=== PATIENT | male | born 1955 | race Caucasian/White ===

== ENCOUNTER 2018-12-23 12:15 | Emergency (ER) | payer MEDICARE, SELFPAY ==
[2018-12-23 12:17] VITALS: BP 141/87; PULSE 102; RESP 18; TEMP 36.2; O2SAT 97; BMI 27.3
[2018-12-23] MEDS: morphine 10 MG/ML Syringe IM (12:54)
[2018-12-23] MEDS: Triamcinolone Acetonide 40 MG/ML Vial 80 MG IM (12:54)
[2018-12-23] MEDS: Ondansetron ODT 4 MG Tablet PO (12:54)
[2018-12-23] MEDS: diazePAM 5 MG Tablet PO (12:54)
--- NOTE | 2018-12-23 13:43 | ED.DCSUM_ITS ---
- ER Visit Summary Date of Service: 12/23/18 Chief Complaint: Fall History of Present Illness: The patient is a [address] Govea. He reports that 3 days ago he was cleaning his boat and was sitting on a seat. He fell off his feet onto his left hip and back. He reports it was approximately 1 foot drop. He denies any blood in the head or loss of consciousness. He complains of a sharp lower back pain is 10 on 10 severity. He states it is worsened by him when the muscle spasm. Is taken a leave without relief. He has paresthesias that radiate around the anterior surface of his left thigh. He denies any weakness. No problems with his bowels or his bladder. No groin numbness. Patient went to urgent care yesterday and had x-rays that were negative. He denies any other complaints. Physical Examination: Vitals: Stable. Afebrile. General: A&O x 3. NAD. Cardiovascular exam: Regular rate and rhythm, no murmur, rub or gallop. Respiratory exam: Clear to auscultation bilaterally. No wheezes or stridor. Abdominal exam: Soft, nontender, nondistended, normal bowel sounds. No peritoneal signs. Back: No tenderness to palpation over the vertebrae or the flank. No point tenderness. Negative straight leg bilaterally. 5/5 DF, PF, EHL bilaterally. Decreased sensation to the lateral thigh on the left in an L4 distribution Extremity: No clubbing, cyanosis, or edema. Test Results: I did get the radiologist reads of the LS spine and pelvis x-rays from yesterday. Pelvis was negative. LS spine x-rays show 4 mm of anterior slippage of L3 on L4. No evidence of spondylolysis. Suspect that this is chronic. Moderate degree of disc disease disease at L3/L4. Emergency Department Course and Treatment: Patient was treated with morphine and Kenalog IM. He was given Valium p.o. He had significant relief from this. Treatment Plan: I had a prolonged discussion with patient that with his pain not being reproduced with palpation and the paresthesias in an L4 distribution on the left I suspect that he has a herniated disc in his back. He will be discharged with Percocet and Valium. Instructed to follow-up his primary care physician in 3 to 5 days if not improving. The signs and symptoms of cauda equina syndrome were discussed and he is instructed to return for these. Disposition: To home in improved and stable condition. Impression: 1. Low back pain, acute. This note was generated with [employer] dictation software. It may contain incorrect words, spelling, and punctuation that were not noted in review of the chart prior to signing ED Disposition - Plan for ED Patient: Disposition: Home or Assisted Living Instructions: BACK PAIN (Acute or Chronic) Prescriptions: Oxycodone HCl/Acetaminophen [Percocet 5/325] 1 tab PO Q6H PRN PRN 5 Days #20 tab PRN Reason: Pain Prescription Printed Diazepam [Valium] 5 mg PO Q8 PRN #20 tab PRN Reason: Muscle Spasm Prescription Printed Referrals: Abdirahman Govea MD [Primary Care Provider] - 3-5 Days if not improving
[2018-12-23 13:50] VITALS: BP 129/100; PULSE 98; RESP 15; O2SAT 100
--- NOTE | 2018-12-23 13:50 | ED.RN ---
PT GIVEN WRITTEN AND VERBAL DISCHARGE INSTRUCTIONS AND HOME GOING PRESCRIPTIONS. PT EDUCATED NOT TO DRIVE WHEN TAKING THESE MEDICATIONS. PT REPORTS UNDERSTANDING AND DENIES ANY FURTHER QUESTIONS. PT REPORTS SON IS TAKING HIM HOME AND THAT HE IS IN THE WAITING ROOM. PT AMBULATES OUT OF DEPT, NO ASSISTANCE FROM STAFF NEEDED.
== END 2018-12-23 13:52 | disposition home or self-care (01) ==
LOC: ED 13:06
PROVIDERS: Emergency Provider Emergency Medicine; Family Provider Family Medicine; PCP Family Medicine
DX: M54.5 Low back pain (principal); M62.830 Muscle spasm of back; W17.89XA Other fall from one level to another, initial encounter; Y93.9 Activity, unspecified; Y92.9 Unspecified place or not applicable; Y99.9 Unspecified external cause status; Z79.52 Long term (current) use of systemic steroids; Z79.899 Other long term (current) drug therapy; Z87.19 Personal history of other diseases of the digestive system; Z90.49 Acquired absence of other specified parts of digestive tract
CPT/HCPCS: 96372; 99283

== ENCOUNTER 2018-12-26 04:02 | Emergency (ER) | payer MEDICARE, SELFPAY ==
[2018-12-26 04:03] VITALS: BP 186/113; PULSE 72; RESP 16; TEMP 36.2; O2SAT 98; BMI 26.9
--- NOTE | 2018-12-26 04:12 | ED.VIS.GEN ---
History of Present Illness Chief Complaint: Constipation Informant: Patient Narrative: She stated he is been constipated for the last 3 days. He was seen for back pain and given morphine and prescribed narcotics and benzos. He has not had a bowel movement since. He has abdominal bloating. Over the last couple hours she has not been able to urinate. He thinks is from the constipation. He is never had this before. Current severity is moderate. He has been passing gas. He try to sit on toilet for 2 hours with no relief. He is not sure if it that his anus or rectum yet. No stool softeners. Past Medical History - Allergies and Home Meds Allergies/Adverse Reactions: Allergies No Known Allergies Allergy (Verified 12/26/18 04:02) Primary Care Physician: Abdirahman Govea MD [Primary Care Provider] - Prior records reviewed: Yes Past Medical History: - - Reviewed Surgical History: - - Reviewed Smoking Status: Never smoker Alcohol: None Drugs: None Review of Systems General: Denies: Chills, Fever, Sweats Eyes: Denies: Visual changes - bilaterally, Diplopia ENT: Denies: Rhinorrhea, Sore throat Cardiovascular: Denies: Chest pain, Palpitations Respiratory: Denies: Dyspnea, Cough, Dyspnea on exertion Gastrointestinal: Reports: Abdominal pain, Constipation. Denies: Nausea, Vomiting, Diarrhea, Melena, Hematochezia Genitourinary: Reports: - - HPI. Denies: Dysuria, Hematuria, Frequency Musculoskeletal: Denies: Back pain, Extremity Pain Skin: Denies: Rash, Wounds Neurological: Denies: Headache, Weakness, Numbness Physical Exam Vital Signs/Narrative: Vital Signs Temp Pulse Resp BP Pulse Ox 12/26/18 04:03 97.2 F L 72 16 186/113 H 98 General: Well nourished, Well developed, No Acute Distress Head: Normocephalic, Atraumatic Eyes: Perrl, EOMI ENT: Moist mucous membranes, No rhinorrhea Neck: Supple, Nontender Cardiovascular: Regular rate, Regular rhythm, No murmurs Respiratory: No distress, CTA bilaterally, Chest nontender Abdomen: Soft, Normal bowel sounds, Tender - Tender in the lower abdomen diffusely. Negative for: Nontender, Nondistended, Guarding, Rebound tenderness Back: Nontender, Normal Inspection Extremities: Nontender, No edema Skin: Normal color, No rash Neurological: Alert, Oriented x3, Cranial nerves II-XII grossly intact, Normal Strength, Normal Sensation Psychological: Normal affect, Normal Mood Diagnostic/Tx/Re-eval - Medical Decision Making Given a soapsuds enema she had good relief after this and feels much better. Large BM noted. Patient will be discharged to start MiraLAX and Colace to soften his stool. ED Disposition - Plan for ED Patient: Disposition: Home or Assisted Living Diagnosis: Constipation Instructions: CONSTIPATION (Adult) Referrals: Abdirahman Govea MD [Primary Care Provider] -
== END 2018-12-26 05:45 | disposition home or self-care (01) ==
PROVIDERS: Emergency Provider Emergency Medicine; Family Provider Family Medicine; PCP Family Medicine
DX: K59.00 Constipation, unspecified (principal); Z79.52 Long term (current) use of systemic steroids; Z79.899 Other long term (current) drug therapy
CPT/HCPCS: 99284

== ENCOUNTER 2019-08-12 17:42 | Emergency (ER) | payer MEDICARE, SELFPAY ==
[2019-08-12 17:44] VITALS: BP 159/93; PULSE 78; RESP 18; TEMP 37.3; O2SAT 99; BMI 28.0
[2019-08-12] MEDS: morphine 10 MG/ML Syringe 4 MG SC (18:00)
[2019-08-12] MEDS: Orphenadrine 60 MG/2 ML Ampul IM (18:01)
[2019-08-12] MEDS: Morphine 4 MG/ML Syringe SC (19:18)
[2019-08-12] MEDS: Ketorolac 60 MG/2 ML Vial IM (19:20)
[2019-08-12 19:22] VITALS: BP 168/91; PULSE 75; RESP 15; O2SAT 98
[2019-08-12 20:07] VITALS: BP 148/75; PULSE 74; RESP 15; O2SAT 96
--- NOTE | 2019-08-12 20:24 | ED.DCSUM_ITS ---
- ER Visit Summary Date of Service: 08/12/19 Chief Complaint: Back pain History of Present Illness: The patient is a 63 M with back pain that started this morning when he woke up. Nothing seemed to bring it on. Worse with use. Nothing seems to make it better. The pain is in his lower back. He denies as sociated symptoms like GI or symptoms. Denies weakness or numbness. Denies any history of back surgery or instrumentation. Denies blood thinners. Denies fevers or systemic symptoms. Denies immune compromise, IV drug abuse. He had x-rays of his lower back in December. Physical Examination: Afebrile and vital signs unremarkable. Patient appears uncomfortable but not toxic or in distress. Abdomen is soft and nontender. Lower back pain. Straight leg raise negative. Normal strength and sensation in all groups. Neurovascular intact. Test Results: None indicated Emergency Department Course and Treatment: Patient symptoms sound like myofascial back pain. He had this in the past. There is no indication for imaging or other diagnostic testing. He was treated with morphine and Norflex. On reevaluation, he was having continued spasms. No new or worsening symptoms or findings. He was treated with additional morphine and Toradol. On further reevaluation, he is feeling much better. Patient will be discharged for outpatient therapy with pain medicine and muscle relaxers. Return for new or worsening issues. Follow-up with primary care. Treatment Plan: As above Disposition: Discharge Impression: Lumbar back pain This note was generated with [employer] dictation software. It may contain incorrect words, spelling, and punctuation that were not noted in review of the chart prior to signing ED Disposition - Plan for ED Patient: Referrals: Abdirahman Govea MD [Primary Care Provider] -
--- NOTE | 2019-08-12 20:27 | ED.DEP ---
ED Disposition - Plan for ED Patient: Instructions: ED LUMBAR SPRAIN/STRAIN Prescriptions: cycloBENZAPRine HCl [Flexeril] 10 mg PO TID PRN #20 tab PRN Reason: Muscle Spasm Prescription Printed Oxycodone HCl/Acetaminophen [Percocet 5/325] 1 tab PO Q6H PRN PRN 3 Days #12 tab PRN Reason: Pain Prescription Printed Referrals: Abdirahman Govea MD [Primary Care Provider] -
[2019-08-12 20:51] VITALS: BP 146/73; PULSE 67; RESP 18; O2SAT 96
== END 2019-08-12 20:51 | disposition home or self-care (01) ==
PROVIDERS: Emergency Provider Emergency Medicine; PCP Family Medicine
DX: M54.5 Low back pain (principal)
CPT/HCPCS: 96372; 99284

== ENCOUNTER 2019-09-13 10:09 | Inpatient (IN) | payer MEDICARE, SELFPAY ==
[2019-09-13] VITALS (12 sets, daily range): BP systolic 134–146; BP diastolic 84–123; PULSE 68–92; RESP 16–21; TEMP 36.3–37.1; O2SAT 94–99; BMI 26.9; BMI 26.3
--- NOTE | 2019-09-13 10:32 | EKG12_ITS ---
Test Reason : COUGH Blood Pressure : / mmHG Vent. Rate : 074 BPM Atrial Rate : 074 BPM P-R Int : 138 ms QRS Dur : 082 ms QT Int : 412 ms P-R-T Axes : 022 -13 030 degrees QTc Int : 457 ms Normal sinus rhythm Low voltage QRS Inferior infarct , age undetermined Abnormal ECG Confirmed by ANJEL FELICIANO, HANNAH ([id number]), market editor ИВАН HEWITT ([id number]) on 09/17/2019 2:57:24 PM Referred By: LILI Confirmed By:HANNAH HOBBS MD
--- NOTE | 2019-09-13 10:37 | ED.DCSUM_ITS ---
- ER Visit Summary Date of Service: 09/13/19 Chief Complaint: Cough History of Present Illness: The patient is a 63 M presenting with shortness of breath, cough. Patient states the symptoms have been ongoing for the past week. He has had a dry cough and shortness of breath. He denies fever, complains of chills. Denies abdominal pain, nausea, vomiting, diarrhea. Denies chest pain. He states a month ago he had back pain that lasted approximately 3 weeks. This is improving. He states he saw a chiropractor daily and his symptoms are now improving. He was seen by his primary care physician on Tuesday and had a negative chest x-ray at that time and was started on albuterol. He called his primary care physician today because he was not improving and he was advised to come to the emergency department. He has had no sick contacts. No recent travel. No other complaints. Physical Examination: Vitals are stable. Patient is afebrile. Alert no acute distress. HEENT exam is unremarkable. Neck is supple. Lungs are wheezing bilaterally. Heart is regular rate and rhythm. Abdomen is soft nontender nondistended. Extremities are unremarkable. No edema Skin is warm and dry. No focal neurologic deficit. Remainder of exam is unremarkable. Emergency Department Course and Treatment: EKG is sinus rhythm rate of 74 with no acute ischemic changes. Chest x-ray shows no acute process. CBC, chemistries unremarkable. D-dimer negative. Troponin negative. Patient was given albuterol, Atrovent aerosols with some improvement. With ambulation his pulse ox dropped to 87% on room air and he became extremely dyspneic. He was given Solu-Medrol IV. COVID testing was sent and is pending. Discussed with the hospitalist for admission Disposition: Admission Impression: Dyspnea, hypoxia, viral syndrome This note was generated with [employer] dictation software. It may contain incorrect words, spelling, and punctuation that were not noted in review of the chart prio r to signing ED Disposition - Plan for ED Patient: Referrals: Abdirahman Govea MD [Primary Care Provider] -
--- NOTE | 2019-09-13 10:55 | RAD_ITS ---
STUDY: X-RAY CHEST REASON FOR EXAM: Male, 63 years old. SOB and cough for a week TECHNIQUE: Single AP portable view of the chest. COMPARISON: Comparison is made with prior examination dated October 10, 2014. FINDINGS: EKG electrodes are seen. The lungs are clear and expanded. There is no demonstrated pleural abnormality. Normal size heart. Normal mediastinum and zainab. Normal visualized pulmonary arteries. There is atherosclerotic tortuosity of the aortic arch and descending thoracic aorta. There are diffuse degenerative changes of the visualized thoracic spine. Normal visualized ribs, clavicles, and shoulders. There is no demonstrated abnormality of the visualized soft tissue structures of the upper abdomen. RAD/Chest 1 View (Portable) IMPRESSION: No acute abnormality is seen. Electronically Signed: Hong Angel, at 11:21 EDT , Service support ,
[2019-09-13 11:08] LABS: Absolute Lymphocyte Count 1.46 X10^3/uL (0.83-4.51); Absolute Neutrophil Count 4.6 X10^3/uL (2.0-7.7); Basophil# 0.06 X10^3/uL; Basophil% 0.9 % (0-1); Eosinophil# 0.28 X10^3/uL; Hematocrit 41.3 % (40-54); Hemoglobin 13.8 g/dL (13.0-16.5); Lymphocyte # 1.46 X10^3/ul (4.0); Lymphocyte % 20.7 % (19-41); Mean Corp Hgb Conc 33.4 g/dL (32-36); Mean Corpuscular Hgb 31.9 pg (27.0-32.0); Mean Corpuscular Volume 95.6 fL (80-94); Mean Platelet Vol. 9.4 fl (6.2-12.0); Monocyte# 0.59 X10^3/uL; Monocyte% 8.4 % (0-10); NRBC Flagged by Analyzer 0 % (0-5); Neutrophil # 4.63 X10^3/uL (2.7-7.7); Neutrophil % 65.7 % (47-70); POSITIVE MORPHOLOGY YES; Platelet Count 214 K/mm3 (150-450); RBC Distribution Width CV 12.2 % (11.6-14.6); RBC Distribution Width SD 42.5 fl (35.1-43.9); Red Blood Count 4.32 M/mm3 (4.6-6.2)
[2019-09-13 11:10] LABS: Differential Indicated SCAN CRITERIA MET
[2019-09-13] MEDS: Ipratropium/Albuterol Sulfate 3 ML AMPUL.NEB INHALATION ×2 (11:10→18:15)
[2019-09-13 11:18] LABS: D-Dimer Quantitative (DVT/PE) 0.45 FEU/ug/m (0.27-0.49)
[2019-09-13 11:21] LABS: Anion Gap 3 (5-15); BUN 9 mg/dL (7-18); BUN/Creat Ratio 8.7 RATIO (10-20); Calcium,Total 9.1 mg/dL (8.5-10.1); Chloride 105 mmol/L (98-107); Creatinine, Serum 1.04 mg/dL (0.70-1.30); EST Glomerular Filtration Rate 76 mL/min (>60); Est Glom Filt Rate - Afr Amer 92 mL/min (>60); Estimated Creatinine Clearance 70.81 ml/min; Glucose 89 mg/dL (74-106); Potassium 4.5 mmol/L (3.5-5.1); Sodium Level 137 mmol/L (136-145)
[2019-09-13 12:28] LABS: Differential Comment SCANNED
[2019-09-13] MEDS: MethylPREDNISolone 125 MG/2 ML Vial IV (12:30)
[2019-09-13 12:59] LABS: Lactic Acid 1.1 mmol/L (0.4-1.9)
--- NOTE | 2019-09-13 13:13 | ED.RN ---
TALKED WITH TAIWO IN LAB. COVID 19 TEST RECEIVED IN LAB BUT NOT ACKNOWLEDGED AT THIS TIME
--- NOTE | 2019-09-13 13:14 | HP.PCM_ITS ---
Problem List (1) Asthma exacerbation Status: Acute (2) Colovesical fistula Status: Inactive (3) COVID-19 ruled out Status: Acute History of Present Illness Date of Admission: 09/13/19 Chief Complaint: Shortness of breath cough for about 1 week The patient is a 63 year old M with history of childhood asthma came to ER with shortness of breath and cough for 1 week. Shortness of breath is getting slightly worse but cough is stable. Patient denies fever or chills. No nausea vomiting, diarrhea or constipation or abdominal pain. Patient denies sick contact or being in large gathering/crowd. No significant travel history. Was seen by PCP on Tuesday and had negative chest x-ray and was given albuterol but symptoms did not improve therefore he was sent to ER. In ED, no fever or chills and vitals are stable but he still gets short of breath and hypoxia 87% on room air on ambulation therefore admitted. Chest x- ray no acute abnormality. Past Medical History Allergies No Known Allergies Allergy (Verified 09/13/19 10:12) Home Medications: Ambulatory Orders Medication Instructions Recorded Albuterol Sulfate [Albuterol 2 puff INHALATION Q4H PRN PRN 09/13/19 Sulfate HFA] Nabumetone 750 mg PO BID PRN PRN 09/13/19 Surgical History: - - Reviewed Lives: Alone Smoking Status: Never smoker Alcohol: Heavy - Drinks 2 shots of whiskey 5 days a week. - *Family History Paternal History Items: No pertinent history Review of Systems Constitutional: Reports: Malaise, Weakness, - - Slight loss of appetite. Denies: Chills, Fever HEENT: Denies: Head Aches, Sinus Congestion, Sinus Drainage Cardiovascular: Reports: Chest Tightness - Chest tightness. Denies: Chest Pain, Palpitations Respiratory: Reports: Cough, Shortness of Breath, Shortness of breath upon exertion, Wheezing. Denies: Shortness of breath at rest, Sputum production Gastrointestinal: Denies: Abdominal Pain, Nausea, Vomiting Genitourinary: Denies: Dysuria Musculoskeletal: Denies: Joint Pain, Joint Tenderness Skin: Denies: Rash, Wounds Neurological: Denies: Numbness, Tingling, Focal weakness Psychiatric: Denies: Anxiety, Depression, Homicidal Ideations, Suicidal Ideations Hematologic/ Lymphatic: Denies: Easy Bruising, Easy Bleeding VTE Information - Inpt Only VTE Present on Admission: No VTE Mechan Device Prophylaxis: None VTE Pharm Prophylaxis ordered?: Yes Patient Problems: Active and Suspected Problems Asthma exacerbation (Acute) COVID-19 ruled out (Acute) - Physical Exam Vitals/I&O's: Vital Signs Temp Pulse Resp BP Pulse Ox 98 F 71 16 142/84 H 98 09/13/19 13:05 09/13/19 13:05 09/13/19 13:05 09/13/19 13:05 09/13/19 13:05 Oxygen Delivery Method Room Air Weight: 182 lb Body Mass Index (BMI) 26.9 General: Alert, Oriented x3, Cooperative HEENT: Atraumatic, PERRLA, EOMI, Normocephalic Neck: Supple, No JVD, Negative Carotid Bruits Lungs: Clear to auscultation, Diminished - Air entry diminished in bilateral lung bases, Wheezes Cardiovascular: Regular rate, Regular Rhythm, Normal S1, Normal S2, No murmurs Abdomen: Bowel Sounds Present, Soft, Non Tender, Non-Distended Extremities: No edema, Capillary Refill Less than 3 Seconds Skin: No rashes, No breakdown Musculoskeletal: No Tenderness to Palpation of Joints or Extremities Neurological: Cranial nerves II-XII grossly intact, Deep Tendon Reflexes 2+/4 and Symmetrical, Neuro grossly intact, Motor Exam 5/5 strength throughout Psych/Mental Status: Normal Affect, Appropriate Laboratory Results 09/13/19 10:50: WBC 7.0, RBC 4.32 L, Hgb 13.8, Hct 41.3, MCV 95.6 H, MCH 31.9, MCHC 33.4, RDW Std Deviation 42.5, RDW Coeff of Sukumar 12.2, Plt Count 214, MPV 9.4, Immature Gran % (Auto) 0.300, Neut % (Auto) 65.7, Lymph % (Auto) 20.7, [place] % (Auto) 8.4, Eos % (Auto) 4.0, Baso % (Auto) 0.9, Absolute Neuts (auto) 4.6, Absolute Lymphs (auto) 1.46, Nucleated RBC % 0, Differential Comment SCANNED 09/13/19 10:50: D-Dimer Quant (PE/DVT) 0.45 09/13/19 10:50: Sodium 137, Potassium 4.5, Chloride 105, Carbon Dioxide 29.0, Anion Gap 3 L, BUN 9, Creatinine 1.04, Estim Creat Clear Calc 70.81, Est GFR (MDRD) Af Amer 92, Est GFR (MDRD) Non-Af 76, BUN/Creatinine Ratio 8.7 L, Glucose 89, Calcium 9.1, Troponin I < 0.015 09/13/19 12:15: Lactic Acid 1.1 Assessment/Plan All Active Problems Asthma exacerbation (Acute) COVID-19 ruled out (Acute) The patient is a 63 year old M with history of childhood asthma came to ER with shortness of breath and cough for 1 week. Shortness of breath is getting slightly worse but cough is stable. Patient denies fever or chills. No nausea vomiting, diarrhea or constipation or abdominal pain. Patient denies sick contact or being in large gathering/crowd. No significant travel history. Was seen by PCP on Tuesday and had negative chest x-ray and was given albuterol but symptoms did not improve therefore he was sent to ER. In ED, no fever or chills and vitals are stable but he still gets short of breath and hypoxia 87% on room air on ambulation therefore admitted. Chest x- ray no acute abnormality. 1. Asthma exacerbation: Patient is started on bronchodilator DuoNeb, albuterol as needed, incentive spirometry major chest physiotherapy. Blood cultures x2 sent from ER. Respiratory panel ordered. Sputum culture if patient expectorates sputum. 2. Rule out COVID infection: COVID-19 PCR sent from ED; although low risk. CRP elevated at 16.9. D-dimer negative 3. Hypertension: Patient said his blood pressure slightly high. Since ER his average blood pressure is 144/89: Amlodipine 5 mg daily started 4 days now. Hydralazine 10 mg IV every 4 hourly as needed for systolic blood pressure 180 mmHg. 4. History of colovesical repair for laparoscopic anterior resection by Dr. Stevenson in 2016. No active issues. DVT prophylaxis: Lovenox 40 mg subcu twice daily. OBSV E&M: [id number] Initial observation care L3
--- NOTE | 2019-09-13 13:14 | NURSING ---
DR ABDULLAHI PEARSON
--- NOTE | 2019-09-13 13:23 | NURSING ---
207 ABDULLAHI DYSPNEA, HYPOXIA, VIRAL SYNDROME
[2019-09-13 13:37] LABS: LDH 198 U/L (87-241)
--- NOTE | 2019-09-13 14:12 | NURSING ---
explained to patient about having primary contact for nursing staff to provide updates, he requests we replace his son with his brother Quintin Baker (cell phone [phone], home phone [phone]) as primary contact. will call registration to update
[2019-09-13] MEDS: guaiFENesin 1,200 MG Tablet 1200 MG PO ×2 (16:09→22:58)
[2019-09-13] MEDS: Enoxaparin 40 MG/0.4 ML Syringe SC ×2 (16:09→22:54)
[2019-09-13] MEDS: 0.9% Normal Saline 1,000 ML 75 ML IV (16:09)
[2019-09-13] MEDS: Acetaminophen 325 MG Tablet 650 MG PO (16:09)
[2019-09-13] MEDS: amLODIPine 5 MG Tablet PO (16:09)
[2019-09-13] MEDS: 0.9% Saline Lock 10 ML Syringe IV ×2 (16:11→23:03)
[2019-09-13] MEDS: Famotidine 20 MG Tablet PO (22:58)
[2019-09-14 02:37] VITALS: BP 129/73; PULSE 66; RESP 18; TEMP 36.6; O2SAT 94
[2019-09-14] MEDS: 0.9% Saline Lock 10 ML Syringe IV (05:44)
[2019-09-14] MEDS: Acetaminophen 325 MG Tablet 650 MG PO (05:45)
[2019-09-14 06:24] LABS: Absolute Lymphocyte Count 1.06 X10^3/uL (0.83-4.51); Absolute Neutrophil Count 8.6 X10^3/uL (2.0-7.7); Hematocrit 40.8 % (40-54); Hemoglobin 13.5 g/dL (13.0-16.5); Lymphocyte # 1.06 X10^3/ul (4.0); Lymphocyte % 10.7 % (19-41); Mean Corp Hgb Conc 33.1 g/dL (32-36); Mean Corpuscular Volume 96.7 fL (80-94); Mean Platelet Vol. 9.6 fl (6.2-12.0); Monocyte# 0.19 X10^3/uL; Monocyte% 1.9 % (0-10); NRBC Flagged by Analyzer 0 % (0-5); Neutrophil # 8.59 X10^3/uL (2.7-7.7); Neutrophil % 86.7 % (47-70); Platelet Count 234 K/mm3 (150-450); RBC Distribution Width CV 12.4 % (11.6-14.6); RBC Distribution Width SD 42.4 fl (35.1-43.9); Red Blood Count 4.22 M/mm3 (4.6-6.2); White Blood Count 9.9 K/mm3 (4.4-11.0)
[2019-09-14 07:03] VITALS: PULSE 80; RESP 20; O2SAT 97
[2019-09-14] MEDS: Ipratropium/Albuterol Sulfate 3 ML AMPUL.NEB INHALATION (07:03)
[2019-09-14 07:07] LABS: ALB/GLOB Ratio 0.8 RATIO (0.9-2.4); AST(SGOT) 16 U/L (15-37); Alanine Aminotransfer ALT/SGPT 22 U/L (16-61); Albumin, Serum 3.4 g/dL (3.2-5.0); Alkaline Phosphatase 97 U/L (45-117); Anion Gap 4 (5-15); BUN 15 mg/dL (7-18); BUN/Creat Ratio 14.7 RATIO (10-20); Calcium,Total 8.6 mg/dL (8.5-10.1); Chloride 106 mmol/L (98-107); Creatinine, Serum 1.02 mg/dL (0.70-1.30); EST Glomerular Filtration Rate 78 mL/min (>60); Est Glom Filt Rate - Afr Amer 94 mL/min (>60); Globulin 4.2 g/dL (2.2-4.2); Glucose 135 mg/dL (74-106); Potassium 3.8 mmol/L (3.5-5.1); Protein, Total 7.6 g/dL (6.4-8.2); Sodium Level 137 mmol/L (136-145)
[2019-09-14 08:37] VITALS: BP 122/70; PULSE 74; RESP 18; TEMP 37; O2SAT 97
[2019-09-14] MEDS: Enoxaparin 40 MG/0.4 ML Syringe SC (08:42)
[2019-09-14] MEDS: guaiFENesin 1,200 MG Tablet 1200 MG PO (08:42)
[2019-09-14] MEDS: Famotidine 20 MG Tablet PO (08:42)
[2019-09-14] MEDS: amLODIPine 5 MG Tablet PO (08:42)
--- NOTE | 2019-09-14 11:04 | DCINST_ITS ---
- Discharge Diagnoses Current Active Problems: Current Active and Chronic Problems Asthma exacerbation (Acute) COVID-19 ruled out (Acute) You will use the following diet at home:: Cardiac Your food should be the consistency of: Regular Discharge Activity: May Not Drive - for 1 week Weight Bearing Status: Weight bearing as tolerated Call your doctor if you observe: Fever of 101 or Higher, Numbness or Tingling, Inability to urinate, Inability to have a bowel movement, Shortness of breath, Dizziness, Fainting spells, Swelling in the ankles, Chest pain, Prolonged hiccoughing, Increased palpitations (irregular heartbeat) Allergies/Adverse Reactions: Allergies No Known Allergies Allergy (Verified 09/13/19 10:12) Medications to take at Discharge Albuterol Sulfate [Albuterol Sulfate HFA] 2 puff INHALATION Q4H PRN PRN 09/13/19 Nabumetone 750 mg PO BID PRN PRN 09/13/19 Guaifenesin [Mucinex] 1,200 mg PO BID #14 tab.er.12h 09/14/19 Lisinopril [Zestril] 5 mg PO DAILY #30 tab 09/14/19 The following prescriptions were given: Guaifenesin [Mucinex] 1,200 mg PO BID #14 tab.er.12h Transmission Status: Pending to [facility] Lisinopril [Zestril] 5 mg PO DAILY #30 tab Transmission Status: Pending to [facility] Primary Care Physician: Abdirahman Govea MD [Primary Care Provider] - Please follow up with your Primary Care Physician in: in 2 weeks Test Results: Test results from this visit will be discussed in further detail at your follow- up appointment, if applicable. Please Follow Up With: Americo Contreras DO When: in 2-4 weeks for PFT. Had particulate exposure, Al, iron for 35 yrs, asthma
--- NOTE | 2019-09-14 11:06 | DS.PCM_ITS ---
Discharge Date and Diagnosis - Problem List Patient Problems: Active and Suspected Problems Asthma exacerbation (Acute) COVID-19 ruled out (Acute) Date of Admission: 09/13/19 Date of Discharge: 09/14/19 - Primary Discharge Diagnosis Active and Suspected Problems Asthma exacerbation (Acute) COVID-19 ruled out (Acute) Hospital Course and Treatment Operations: colectomy - laparoscopic low anterior colectomy with repair of colovesical fistula Summary of Care Provided: [] The patient is a 63 year old M with history of childhood asthma came to ER with shortness of breath and cough for 1 week. Shortness of breath is getting slightly worse but cough is stable. Patient denies fever or chills. No nausea vomiting, diarrhea or constipation or abdominal pain. Patient denies sick contact or being in large gathering/crowd. No significant travel history. Was seen by PCP on Tuesday and had negative chest x-ray and was given albuterol but symptoms did not improve therefore he was sent to ER. In ED, no fever or chills and vitals are stable but he still gets short of breath and hypoxia 87% on room air on ambulation therefore admitted. Chest x- ray no acute abnormality. 1. Asthma exacerbation with mild hypoxia/acute hypoxic respiratory insufficiency: Patient is started on bronchodilator DuoNeb, albuterol as needed, incentive spirometry major chest physiotherapy. Blood cultures x2 sent from ER. Respiratory panel ordered. Sputum culture if patient expectorates sputum. Patient felt better. Patient is on albuterol at home. Advised to follow-up in pulmonary clinic in 2 to 4 weeks for outpatient PFT. Patient has industrial particulate exposure for about 35 years. Never had PFT. Hypoxia resolved. Pulse ox 97% on room air, on ambulation, 96% on room air 2. COVID ruled out: CRP elevated at 16.9. D-dimer negative. COVID-19 PCR negative 3. Hypertension: Patient said his blood pressure slightly high. Since ER his average blood pressure is 144/89: Amlodipine 5 mg daily started 4 days now. Hydralazine 10 mg IV every 4 hourly as needed for systolic blood pressure 180 mmHg. 4. History of colovesical repair for laparoscopic anterior resection by Dr. Stevenson in 2016. No active issues. DVT prophylaxis: Lovenox 40 mg subcu twice daily. Discharge medication reconciliation done. Discharge follow-up instructions completed. Discharge process discussed with the patient and all questions were answered to patient's satisfaction. Patient to follow-up with Dr. Contreras in 2 to 4 weeks Total time spent, exact 35 minutes on discharge meds reconciliation, examination, coordination of care with nurses and ancillary staff, review of imaging and blood test and discussion with the patient on follow-up instructions Patient Problems: Active and Suspected Problems Asthma exacerbation (Acute) COVID-19 ruled out (Acute) Subjective: Seen and examined. Patient has history of childhood asthma. Patient has history of industrial particulate exposure for about 35 years. Patient worked in [employer], [employer] and [employer] industry in [place], [place]. Never had PFT Objective: On exam No fever or chills. Hemodynamically stable. Patient had about 2 L of oxygen last night but was weaned off. General: Alert, Oriented x3, Cooperative HEENT: Atraumatic, PERRLA, EOMI, Normocephalic Neck: Supple, No JVD, Negative Carotid Bruits Lungs: Clear to auscultation, Air entry diminished in bilateral lung bases, no wheezing or rhonchi Cardiovascular: Regular rate, Regular Rhythm, Normal S1, Normal S2, No murmurs Abdomen: Bowel Sounds Present, Soft, Non Tender, Non-Distended Extremities: No edema, Capillary Refill Less than 3 Seconds Skin: No rashes, No breakdown Musculoskeletal: No Tenderness to Palpation of Joints or Extremities Neurological: Cranial nerves II-XII grossly intact, Deep Tendon Reflexes 2+/4 and Symmetrical, Neuro grossly intact, Motor Exam 5/5 strength throughout Psych/Mental Status: Normal Affect, Appropriate - Physical Exam Vitals/I&O's: Vital Signs Temp Pulse Resp BP Pulse Ox 98.6 F 74 18 122/70 H 97 09/14/19 08:37 09/14/19 08:37 09/14/19 08:37 09/14/19 08:37 09/14/19 08:37 Oxygen Flow Rate (L/min) 2 Oxygen Delivery Method Nasal Cannula Weight: 178 lb 2.136 oz Body Mass Index (BMI) 26.3 Intake and Output for Last 24 Hours 09/12/19 09/13/19 09/14/19 23:59 23:59 23:59 Intake Total 1750 / 1750 Balance 1750 / 1750 Microbiology Past 72 Hours 09/13/19 11:59 Mucosa - Nasopharyngeal Coronavirus COVID-19 PCR - Final Laboratory Results 09/13/19 10:50: WBC 7.0, RBC 4.32 L, Hgb 13.8, Hct 41.3, MCV 95.6 H, MCH 31.9, MCHC 33.4, RDW Std Deviation 42.5, RDW Coeff of Sukumar 12.2, Plt Count 214, MPV 9.4, Immature Gran % (Auto) 0.300, Neut % (Auto) 65.7, Lymph % (Auto) 20.7, Warren % (Auto) 8.4, Eos % (Auto) 4.0, Baso % (Auto) 0.9, Absolute Neuts (auto) 4.6, Absolute Lymphs (auto) 1.46, Nucleated RBC % 0, Differential Comment SCANNED 09/13/19 10:50: D-Dimer Quant (PE/DVT) 0.45 09/13/19 10:50: Sodium 137, Potassium 4.5, Chloride 105, Carbon Dioxide 29.0, Anion Gap 3 L, BUN 9, Creatinine 1.04, Estim Creat Clear Calc 70.81, Est GFR (MDRD) Af Amer 92, Est GFR (MDRD) Non-Af 76, BUN/Creatinine Ratio 8.7 L, Glucose 89, Calcium 9.1, Troponin I < 0.015 09/13/19 10:50: Lactate Dehydrogenase 198, C-React Prot Ext Range 16.90 H 09/13/19 11:59: COVID-19 (RAQUEL) Cancelled 09/13/19 12:15: Lactic Acid 1.1 09/14/19 06:06: WBC 9.9, RBC 4.22 L, Hgb 13.5, Hct 40.8, MCV 96.7 H, MCH 32.0, MCHC 33.1, RDW Std Deviation 42.4, RDW Coeff of Sukumar 12.4, Plt Count 234, MPV 9.6, Immature Gran % (Auto) 0.700, Neut % (Auto) 86.7 H, Lymph % (Auto) 10.7 L, Warren % (Auto) 1.9, Eos % (Auto) 0.0, Baso % (Auto) 0.0, Absolute Neuts (auto) 8.6 H, Absolute Lymphs (auto) 1.06, Nucleated RBC % 0 09/14/19 06:06: Sodium 137, Potassium 3.8, Chloride 106, Carbon Dioxide 27.0, Anion Gap 4 L, BUN 15, Creatinine 1.02, Estim Creat Clear Calc 72.20, Est GFR (MDRD) Af Amer 94, Est GFR (MDRD) Non-Af 78, BUN/Creatinine Ratio 14.7, Glucose 135 H, Calcium 8.6, Total Bilirubin 0.70, AST 16, ALT 22, Alkaline Phosphatase 97, Total Protein 7.6, Albumin 3.4, Globulin 4.2, Albumin/Globulin Ratio 0.8 L, TSH 0.40 Current Medications Acetaminophen (Tylenol) 650 mg PO Q6H PRN PRN PRN Reason: Pain Score 1-10/Temp > 100.7 F Last Admin: 09/14/19 05:45 Dose: 650 mg Documented by: Al Hydroxide/Mg Hydroxide (Mylanta Ii) 30 ml PO Q6H PRN PRN PRN Reason: Gastric Burning Albuterol Sulfate (Ventolin Aerosols) 2.5 mg INHALATION Q2H PRN PRN PRN Reason: Shortness of Breath/Wheezing Albuterol/Ipratropium (Duoneb) 3 ml INHALATION Q6HWA.RT [facility] Last Admin: 09/14/19 07:03 Dose: 3 ml Documented by: Amlodipine Besylate (Norvasc) 5 mg PO DAILY [facility] Last Admin: 09/14/19 08:42 Dose: 5 mg Documented by: Dextrose (D50w Syringe) 0 gm IV X1 PRN; Protocol PRN Reason: Hypoglycemia Enoxaparin Sodium (Lovenox) 40 mg SC BID [facility] Last Admin: 09/14/19 08:42 Dose: 40 mg Documented by: Famotidine (Pepcid) 20 mg PO BID [facility] Last Admin: 09/14/19 08:42 Dose: 20 mg Documented by: Glucagon () 1 mg IM .X1 PRN PRN Reason: Hypoglycemia Guaifenesin (Mucinex) 1,200 mg PO BID [facility] Last Admin: 09/14/19 08:42 Dose: 1,200 mg Documented by: Hydralazine HCl (Apresoline Iv) 10 mg IV Q4H PRN PRN PRN Reason: SBP>180 mmhg Sodium Chloride () 250 mls @ 15 mls/hr IV .[id number] PRN PRN Reason: Saline Flush Sodium Chloride () 250 mls @ 15 mls/hr IV .[id number] PRN PRN Reason: Additional IVPB Infusion Melatonin (Melatonin) 3 mg PO QHS PRN PRN PRN Reason: INSOMNIA Methylprednisolone (Solu-Medrol) 40 mg IV Q8 [facility] Last Admin: 09/14/19 05:44 Dose: 40 mg Documented by: Morphine Sulfate () 2 mg IV Q3H PRN PRN PRN Reason: Pain Score 6-10/10 Nitroglycerin (Nitrostat) 0.4 mg SUBLINGUAL Q5M PRN PRN Reason: CARDIAC/CHEST PAIN Oxycodone HCl (Oxyir) 5 mg PO Q4H PRN PRN PRN Reason: Pain Score 4-5/10 Prochlorperazine Edisylate (Compazine Iv) 5 mg IV Q4H PRN PRN PRN Reason: Breakthrough nausea/vomiting Senna/Docusate Sodium (Senokot-S, Lyssa-Colace) 2 tablet PO BID PRN PRN PRN Reason: Constipation Sodium Chloride () 10 - 40 ml IV UD PRN PRN Reason: SALINE FLUSH Last Admin: 09/14/19 05:44 Dose: 10 ml Documented by: Discharge Activity: May Not Drive - for 1 week Weight Bearing Status: Weight bearing as tolerated Call your doctor if you observe: Fever of 101 or Higher, Numbness or Tingling, Inability to urinate, Inability to have a bowel movement, Shortness of breath, Dizziness, Fainting spells, Swelling in the ankles, Chest pain, Prolonged hiccoughing, Increased palpitations (irregular heartbeat) Home Medications: Medications to take at Discharge Albuterol Sulfate [Albuterol Sulfate HFA] 2 puff INHALATION Q4H PRN PRN 09/13/19 Nabumetone 750 mg PO BID PRN PRN 09/13/19 Guaifenesin [Mucinex] 1,200 mg PO BID #14 tab.er.12h 09/14/19 Lisinopril [Zestril] 5 mg PO DAILY #30 tab 09/14/19 Following Prescrptions Were Given to Patient: Guaifenesin [Mucinex] 1,200 mg PO BID #14 tab.er.12h Transmission Status: Received by [email or web address] Lisinopril [Zestril] 5 mg PO DAILY #30 tab Transmission Status: Received by [email or web address] Primary Care Physician: Abdirahman Govea MD [Primary Care Provider] - Please follow up with your Primary Care Physician in: in 2 weeks Please Follow Up With: Americo Contreras, When: in 2-4 weeks for PFT. Had particulate exposure, Al, iron for 35 yrs, asthma Medical Necessity - Tobacco Use Smoking Status: Never smoker Tobacco Use: - Meaningful Use Info Meaningful Use Diagnoses (Choose all that apply): None applicable OBSV E&M: 16615 Observation care discharge
[2019-09-14 11:10] VITALS: O2SAT 97
--- NOTE | 2019-09-14 11:33 | CASEMGMT ---
RN CM Note: pt is dc'd. Nursing is weaning off oxygen. COVID negative. No dc needs identified @ this time. Sourav CALDERÓNN RN ACM
[2019-09-14 13:00] VITALS: BP 144/96; PULSE 78; RESP 18; TEMP 36.7; O2SAT 96; O2SAT 97
== END 2019-09-14 13:28 | disposition home or self-care (01) | DRG 203 ==
LOC: ED 12:02 → MS2 13:24
PROVIDERS: Admitting Provider Internal Medicine; Emergency Provider Emergency Medicine; PCP Family Medicine; Visit Provider Internal Medicine
DX: J45.901 Unspecified asthma with (acute) exacerbation (principal); R09.02 Hypoxemia; I10 Essential (primary) hypertension
CPT/HCPCS: 36415; 71045; 80048; 80053; 83605; 83615; 84443; 84484; 85025; 85379; 86140; 87040; 87635; 93005; 94640; 99285; G2023; J7030; A4216; U0002; U0004

== ENCOUNTER → 2019-09-27 13:06 | Outpatient (CLI) | payer MEDICARE, SELFPAY ==
[2019-09-13 14:16] VITALS: BMI 26.3
--- NOTE | 2019-09-28 11:08 | PFT ---
INTRODUCTION: The patient is a 63-year-old male that presents for pulmonary function studies secondary to a diagnosis of dyspnea. Respiratory therapy reports good patient effort. Bronchodilators were used during testing. INTERPRETATION: Forced expiration spirometry demonstrates no evidence of a large airways obstructive ventilatory defect. There was no significant response to aerosolized bronchodilators. Spirograms are of good quality and plateau normally. Body plethysmography was performed and reveals a mildly decreased TLC to 5.23 L, 82% of predicted, indicative of a mild restrictive ventilatory impairment. Diffusing capacity by single breath CO is preserved at 97% of predicted. IMPRESSION: Isolated mild restrictive ventilatory impairment with preserved diffusing capacity.
== END ==
PROVIDERS: PCP Family Medicine; Referring Provider Internal Medicine Critical Care Medicine; Visit Provider Internal Medicine Critical Care Medicine
DX: R06.00 Dyspnea, unspecified (principal)
CPT/HCPCS: 94060; 94726; 94729

== ENCOUNTER → 2019-11-22 | Outpatient (CLI) | payer MEDICARE, SELFPAY ==
[2019-09-13 14:16] VITALS: BMI 26.3
== END | disposition home or self-care (01) ==
LOC: LABSPEC 17:56
PROVIDERS: PCP Family Medicine; Referring Provider Family Medicine; Visit Provider Family Medicine
DX: R05 Cough (principal)
CPT/HCPCS: 87635; G2023; U0003